=== PATIENT | male | born 1940 | race Caucasian/White ===

== ENCOUNTER 2018-06-01 11:03 | Emergency (ER) | payer OTHER ==
[2018-06-01] MEDS ORDERED: DIAZEPAM 5 MG/ML 1 ML SYR IVP ONE (11:23)
[2018-06-01] MEDS ORDERED: NS 1,000 ML IV ONE ×2 (11:24→14:41)
--- NOTE | 2018-06-01 11:28 | EDPHY ---
H & P Stated Complaint: R hip pain Source: Patient Exam Limitations: No limitations - Medical/Surgical History Hx Asthma: No Hx Chronic Respiratory Disease: No Hx Diabetes: No Hx Cardiac Disease: No Hx Renal Disease: No Hx Cirrhosis: No Hx Alcoholism: No Hx HIV/AIDS: No Hx Splenectomy or Spleen Trauma: No Other PMH: hip replacements, appy, - Family History Significant Family History: No pertinent family hx - Social History Smoking Status: Never smoked Alcohol Use: Sober Drug Use: None Time Seen by Provider: 06/01/18 11:21 HPI/ROS: CHIEF COMPLAINT: Right hip pain HISTORY OF PRESENT ILLNESS: The patient is a 78-year-old man who states that he dislocated his hip rolling out of bed. He had bilateral hip replacement 14 months ago in [place] at the [facility]. He had his right hip dislocate about 8 months ago and they were able to relocated. This is the 2nd time it has happened. He denies any other pain or injury. No recent fevers or infections. No chest pain or shortness of breath. Severity: Severe Modifying factors: Worsened by movement REVIEW OF SYSTEMS: Constitutional: denies: chills, fever, recent illness, recent injury EENTM: denies: blurred vision, double vision, nose congestion Respiratory: denies: cough, shortness of breath Cardiac: denies: chest pain, irregular heart rate, lightheadedness, palpitations Gastrointestinal/Abdominal: denies: abdominal pain, diarrhea, nausea, vomiting, blood streaked stools Genitourinary: denies: dysuria, frequency, hematuria, pain Musculoskeletal: See HPI Skin: denies: lesions, rash, jaundice, bruising Neurological: denies: headache, numbness, paresthesia, tingling, dizziness, weakness Hematologic/Lymphatic: denies: blood clots, easy bleeding, easy bruising Immunologic/allergic: denies: HIV/AIDS, transplant 10 systems reviewed and negative except as noted EXAM: GENERAL: Well-appearing, well-nourished and in moderate distress. HEAD: Atraumatic, normocephalic. EYES: Pupils equal round and reactive to light, extraocular movements intact, sclera anicteric, conjunctiva are normal. ENT: TMs normal, nares patent, oropharynx clear without exudates. Moist mucous membranes. NECK: Normal range of motion, supple without lymphadenopathy or JVD. LUNGS: Breath sounds clear to auscultation bilaterally and equal. No wheezes rales or rhonchi. HEART: Regular rate and rhythm without murmurs, rubs or gallops. ABDOMEN: Soft, nontender, normoactive bowel sounds. No guarding, no rebound. No masses appreciated. BACK: No CVA tenderness, no spinal tenderness, step-offs or deformities EXTREMITIES: Right hip pain, mild deformity, leg shortened. Normal pulses and sensation distally. NEUROLOGICAL: Cranial nerves II through XII grossly intact. Normal speech, normal gait. 5/5 strength, normal movement in all extremities, normal sensation , normal reflexes PSYCH: Normal mood, normal affect. SKIN: Warm, dry, normal turgor, no visible rashes or lesions. (Aniket Nelson) Constitutional: Initial Vital Signs Temperature (C) 36.5 C 06/01/18 11:14 Heart Rate 83 06/01/18 11:14 Respiratory Rate 18 06/01/18 11:14 Blood Pressure 140/78 H 06/01/18 11:14 O2 Sat (%) 95 06/01/18 11:14 O2 Delivery Mode [Post Nasal Cannula Procedure 1st] O2 Delivery Mode [Procedural Non-Rebreather Mask 1st] O2 Delivery Mode [.Immediate Non-Rebreather Mask Pre-Procedure] O2 Delivery Mode Room Air O2 (L/minute) [Post Procedure 15 1st] O2 (L/minute) [Procedural 1st] 15 O2 (L/minute) [.Immediate Pre- 15 Procedure] O2 (L/minute) 2 Allergies/Adverse Reactions: amoxicillin Allergy (Verified 06/01/18 11:14) Home Medications: Medication Instructions Recorded Apixaban [Eliquis 30-day Starter 1 kit PO AD #1 kit 06/01/18 Pack] Medical Decision Making - Diagnostics Imaging: Discussed imaging studies w/ score caller Radiologist - Diagnostics EKG Interpretation: An EKG obtained and was read and documented in trace view. Please see trace view for full reading and report. Sinus rhythm, atrial fibrillation (Aniket Nelson) Procedures: Procedure: Procedural sedation. Indication: Orthopedic reduction. A pre-sedation evaluation was completed on the patient just prior to the procedure. Patient is an appropriate candidate for procedural sedation with a normal 3-3-2 rule assessment and a Mallampati airway score of class 2. The risks of the sedation were discussed including but not limited to dysrhythmia, need for airway intervention or general anesthesia, disability, ; and verbal consent obtained. A timeout was observed and patient's identity confirmed. The patient was sedated with 250 mg ketamine. The patient was monitored with continuous pulse oximetry, capnography, and media monitor. There were no complications and no significant hypoxemia. I remained at the bedside for the sedation. The total time I spent in the procedural sedation was 16 minutes. Orthopedic reduction: The patient's right prosthetic hip was reduced with traction after appropriate procedural sedation medications were given. He tolerated the procedure well. Did not require any rescue breathing or bagging etc. Post procedural x-rays confirm placement. (Aniket Nelson) ED Course/Re-evaluation: 12:00 p.m. the patient tolerated the procedure well. We will continue to observe. Well preparing for sedation the patient was placed on a monitor any appears to be in atrial fibrillation. Will obtain EKG and lab work for this as well. The patient denies ever having been told this in the past. He has no previous records here. 1:00 p.m. the patient is feeling well. I discussed states with Cardiology Dr. Jules. They recommend Eliquis because of his slightly elevated chads 2 score. Also outpatient follow-up. He will continue taking his amlodipine and metoprolol. His rate is controlled. 2:30 p.m. the patient is still feeling dizzy when he sits up. Likely this is from the Valium he received possibly from the ketamine. He did not feel this week prior to being sedated. We will continue to observe. I do think that he will be able to go home. He is also dehydrated clinically. Will hang L of fluids. (Aniket Nelson) Differential Diagnosis: Partial list of the Differential diagnosis considered include but were not limited to; hip dislocation, fracture, atrial fibrillation and although unlikely based on the history and physical exam, I also considered acute coronary disease infection. I discussed these differential diagnoses and the plan with the patient as well as the usual and expected course. The patient understands that the diagnosis is provisional and that in medicine we are not always correct and that further workup is often warranted. Usual and customary warnings were given. All of the patient's questions were answered. The patient was instructed to return to the emergency department should the symptoms at all worsen or return, otherwise to followup with the physician as we discussed. (Aniket Nelson) Other Provider: 1500: Patient signed out to me pending recovery from sedation. 1540: Patient standing at door of room, demanding to be discharged. He still feels a little dizzy but would like to go home. (Sreekanth Rosas) - Data Points Laboratory Results: Laboratory Results 06/01/18 11:33 06/01/18 11:33 Medications Given: Discontinued Medications Apixaban (Eliquis) 5 mg PO EDNOW ONE Stop: 06/01/18 13:25 Last Admin: 06/01/18 14:38 Dose: 5 mg Diazepam (Valium) 5 mg IVP EDNOW ONE Stop: 06/01/18 11:24 Last Admin: 06/01/18 11:34 Dose: 5 mg Sodium Chloride (Ns) 1,000 mls @ 0 mls/hr IV EDNOW ONE; Wide Open PRN Reason: Protocol Stop: 06/01/18 11:25 Last Admin: 06/01/18 11:34 Dose: 1,000 mls Sodium Chloride (Ns) 1,000 mls @ 0 mls/hr IV ONCE ONE; Wide Open PRN Reason: Protocol Stop: 06/01/18 14:42 Last Admin: 06/01/18 14:42 Dose: 1,000 mls Ketamine HCl (Ketamine) 250 mg IV EDNOW ONE Stop: 06/01/18 12:17 Last Admin: 06/01/18 12:17 Dose: 250 mg Point of Care Test Results: Chemistry 06/01/18 12:53 POC Troponin I 0.02 ng/mL ng/mL (0.00-0.08) Departure - Departure Disposition: Home, Routine, Self-Care Clinical Impression: Hip dislocation, right Qualifiers: Encounter type: initial encounter Qualified Code(s): S73.004A - Unspecified dislocation of right hip, initial encounter Atrial fibrillation Qualifiers: Atrial fibrillation type: unspecified Qualified Code(s): I48.91 - Unspecified atrial fibrillation Condition: Fair Instructions: A-fib (Atrial Fibrillation) (ED), Hip Dislocation (ED) Additional Instructions: Use the abductor pillow and hip precautions as discussed, take the blood thinner until you follow up with Cardiology. Referrals: KYARA ESCOBAR MD [Other] - As per Instructions Rogelio Jules MD [Medical Doctor] - 2-3 days, call for appt. Prescriptions: Apixaban [Eliquis 30-day Starter Pack] 1 kit PO AD #1 kit
[2018-06-01] MEDS ORDERED: PROPOFOL 200 MG/20 ML VIAL ONE (11:47)
[2018-06-01] MEDS ORDERED: KETAMINE 500 MG/10 ML VIAL ONE ×2 (11:47→11:50)
[2018-06-01] MEDS ORDERED: KETAMINE 500 MG/10 ML VIAL IV ONE (12:16)
[2018-06-01 12:57] LABS: PLATELET COUNT 267 10^3/uL (150-400)
--- NOTE | 2018-06-01 12:57 | CPEKG ---
Test Reason : OPEN Blood Pressure : / mmHG Vent. Rate : 077 BPM Atrial Rate : 000 BPM P-R Int : 065 ms QRS Dur : 102 ms QT Int : 384 ms P-R-T Axes : 000 019 003 degrees QTc Int : 435 ms Atrial fibrillation Confirmed by Aniket Nelson ([id number]) on 06/01/2018 12:56:10 PM Referred By: Confirmed By:Aniket Nelson
[2018-06-01 13:05] LABS: INR 1.11 (0.83-1.16); PROTIME(PATIENT) 14.5 SEC (12.0-15.0)
[2018-06-01] MEDS ORDERED: APIXABAN 5 MG TAB PO ONE (13:24)
[2018-06-01 15:50] VITALS: BP 154/91
== END 2018-06-01 15:48 | disposition home or self-care (01) ==
PROC: 0SS9XZZ Reposition Right Hip Joint, External Approach (ICD-10-PCS; principal; 2018-06-01)
DX: S73.004A Unspecified dislocation of right hip, initial encounter (principal); I48.91 Unspecified atrial fibrillation; E86.9 Volume depletion, unspecified; X50.1XXA Overexertion from prolonged static or awkward postures, initial encounter; Y92.003 Bedroom of unspecified non-institutional (private) residence as the place of occurrence of the external cause; Z96.643 Presence of artificial hip joint, bilateral
CPT/HCPCS: 27252; 71045; 73502; 93005; 96361; 96374; 96375; 99283; J3360; 84484-PO; J2704